=== PATIENT | male | born 1955 | race Caucasian/White ===

== ENCOUNTER 2020-04-12 12:54 | Outpatient (CLI) | payer OTHER, SELFPAY ==
--- NOTE | ~2020-04-12 | XR_ITS ---
XR abdomen/kub 1V DATE: 04/12/2020 13:20 INDICATION: Microscopic hematuria TECHNIQUE: AP projection, 2 views COMPARISON: April 12, 2020 CT abdomen pelvis without and with IV contrast material FINDINGS: Subcutaneous fat concentration in the left posterior flank. Prostate calcifications. Lateral calcified pelvic phleboliths. No urinary tract calcifications are no eitan. The psoas shadows are intact. No visceromegaly is evident. The bowel gas pattern is unremarkable, wit hout evidence of obstruction. Dextroscoliosis and degenerative change of the lumbar spine. Degenerative spurring of the lower thora cic spine. IMPRESSION: Nonspecific abdomen Reviewed, dictated and finalized at [facility]. Reviewed, dictated and finalized at [facility]. [employer] INSPECTOR IMPRESSION: Nonspecific abdomen
--- NOTE | ~2020-04-12 | CT_ITS ---
EXAMINATION: CT abdomen pelvis wo/w con DATE: 04/12/2020 13:57 INDICATION: Microscopic hematuria TECHNIQUE: Computed tomography (CT) of the abdomen and pelvis was performed without and subsequently with 130 cc Omnipaque 350 intravenous contrast. Automated exposure control and iterative reconstructi on technique were employed. Exam dose: 2831.37 mGy-cm total exam DLP. COMPARISON: April 12, 2020 KUB FINDINGS: There is discoid atelectasis or more likely scarring in the medial segment of the middle lo be. The lung bases are clear of infiltrate or consolidation. Normal heart size. No pericardial or pleural effusion. The liver, gallbladder, bile ducts, pancreas, pancreatic duct and spleen are unremarkable. Normal size of the adrenal glands. Multiple scattered bilateral renal cysts, measuring up to 13 mm maximal dimension on the left, 15 mm on the right. No filling defect of the renal collecting systems, ureters or urinary bladder is evident. Noncontrast examination reveals no evidence of urinary tract calculus or hydroureteronephrosis. Prostate enlargement and prominent prostate calcifications. There is moderate thickening of the urina ry bladder wall. Normal appendix. No bowel obstruction, bowel wall thickening, pneumatosis or intraperitoneal free air . There is atherosclerotic calcification of the abdominal aorta and particularly prominent calcificatio n of the superior mesenteric artery. No abdominal aortic aneurysm. No intraperitoneal or retroperiton eal or pelvic mass lesion or adenopathy or ascites. Degenerative changes of the thoracic and lumbar spine including severe degenerative disease and minim al retrolisthesis at L3-4. No suspicious osteolytic or osteoblastic lesions are noted. IMPRESSION: Scattered bilateral renal cysts measuring up to 13 mm on the left, 50 mm on the right No urinary tract calculus or hydroureteronephrosis Prostate enlargement and calcifications Reviewed, dictated and finalized at [facility]. Reviewed, dictated and finalized at [facility]. [employer]
[2020-04-12 13:36] LABS: Estimated Glomerular Filt Rate > 60
== END 2020-04-12 12:55 | disposition home or self-care (01) ==
PROVIDERS: PCP Family Medicine Sports Medicine; Visit Provider Urology
DX: R31.29 Other microscopic hematuria (principal); N28.1 Cyst of kidney, acquired; N40.0 Benign prostatic hyperplasia without lower urinary tract symptoms
CPT/HCPCS: 74018; 74178; Q9967

== ENCOUNTER 2021-11-23 12:16 | Outpatient (CLI) | payer MEDICARE, SELFPAY ==
--- NOTE | ~2021-11-23 | XR_ITS ---
XR abdomen/kub 1V 11/23/2021 12:32 INDICATION: Diarrhea. TECHNIQUE: KUB COMPARISON: KUB and CT dated 04/12/2020 FINDINGS: Bowel gas pattern is normal. Moderate colonic fecal loading. There is an oval calcification overlying the left midabdomen, located in the subcutaneous tissues on prior CT examination. There ar e pelvic phleboliths. Moderate lumbar spondylosis with dextroscoliosis. There is no evidence of free air, mass, organomegaly, ascites or obstruction. No abnormal calculi are seen. The bones appear int act. IMPRESSION: 1: No acute abdominal abnormality identified. Reviewed, dictated and finalized at [facility].
== END 2021-11-23 12:17 | disposition home or self-care (01) ==
LOC: ANHIMG 12:19
PROVIDERS: PCP Family Medicine Sports Medicine; Visit Provider Nurse Practitioner Family
DX: R19.7 Diarrhea, unspecified (principal)
CPT/HCPCS: 74018

== ENCOUNTER 2022-01-01 00:54 | Day surgery (SDC) | payer MEDICARE, SELFPAY ==
[2021-12-25 13:55] VITALS: BMI 29.2
[2022-01-01 09:41] VITALS: BP 128/72; PULSE 71; RESP 18; TEMP 36.2; O2SAT 99
[2022-01-01 09:42] LABS: Glucose Point of Care 121 mg/dl (65-105)
[2022-01-01] MEDS: LACTATED RINGERS 1,000 ML 150 ML IV CONT (09:45)
--- NOTE | 2022-01-01 10:01 | WPDANESEPPF ---
Anes - Initial Pre Proc Eval Procedure: Operation Date: 01/01/22 11:00 Proposed Procedures p Esophagogastroduodenoscopy & Colonoscopy - Bakari Quesada MD Date/Time: 01/01/22 10:01 Surgeon: Bakari Quesada MD Pre Op Diagnosis: MINOO, 50 lb weight loss Patient Data Age: 66 Gender: M Height: 1.8 m Weight: 96.5 kg Last Vital Signs Temp 97.2 F L 01/01/22 09:41 Pulse 71 01/01/22 09:41 Resp 18 01/01/22 09:41 BP 128/72 01/01/22 09:41 Pulse Ox 99 01/01/22 09:41 O2 Del Method Room Air 01/01/22 09:41 Allergies Allergy/AdvReac Type Severity Reaction Status Date / Time No Known Allergies Allergy Unverified 01/01/22 09:40 Home Medications Medication Instructions Recorded Confirmed Type allopurinol 300 mg tablet 300 mg PO DAILY 11/23/21 01/01/22 History alprazolam 1 mg tablet (Xanax) 1 mg PO HS 11/23/21 01/01/22 History carvedilol 25 mg tablet 25 mg PO Q12H 11/23/21 01/01/22 History citalopram 40 mg tablet 40 mg PO DAILY 11/23/21 01/01/22 History glipizide 10 mg tablet 10 mg PO BID 11/23/21 01/01/22 History metformin 1,000 mg tablet 1,000 mg PO BID 11/23/21 01/01/22 History atorvastatin 40 mg tablet 40 mg PO DAILY 12/25/21 01/01/22 History ferrous sulfate 140 mg (45 mg 45 mg PO DAILY 12/25/21 01/01/22 History iron) tablet,extended release (Slow Release Iron) lisinopril 20 1 tablet PO DAILY 12/25/21 01/01/22 History mg-hydrochlorothiazide 12.5 mg tablet Laboratory Tests 01/01/22 09:38 POC Capillary Glucose 121 mg/dl H mg/dl (65-105) Patient hx anesthesia problems: none Family hx anesthesia problems: none Results Review: All pre-operative results and documents have been reviewed as part of the pre-operative evaluation. [facility] Past Medical History Medical History (Updated 11/23/21 @ 13:13 by CARSON Dunlap) Diarrhea Iron deficiency anemia Social History Social History Smoking packs per day: 0.5 Smoking cigarettes per day: 10.0 Years smoked: 10 Smoking pack-years: 5.00 Smoking status: Current every day smoker Tobacco type: cigarettes Alcohol intake: current Drinks per week: 24 Alcohol use details: BEERS- NONE FOR A COUPLE MONTHS Substance use: current Substance use type: marijuana Other substance usage details: MEDICAL CARD-DAILY USE Living arrangements: with family Spiritual care concerns: No Anes - Eval Final PreProcedure Day of Procedure 01/01/22 10:01 Patient weight: obese Heart: regular rate and rhythm Lungs: clear to auscultation Airway: Mallampati scale class II Neurological: alert and oriented Last oral intake: >/= 8 hours ASA classification: III Emergent: no Anesthetic plan: proceed Anesthesia type and monitoring: general GIVS and standard monitoring Results Review: All pre-operative results and documents have been reviewed as part of the pre-operative evaluation. Informed Consent: The patient's anesthetic plan and its attendant risks and benefits were discussed with the patient/family/POA. Questions were solicited and answers provided to the satisfaction of the patient/family/POA.
--- NOTE | 2022-01-01 10:12 | PM.HPGS ---
History of Present Illness History of Present Illness Consent: Risks, benefits, and alternatives have been discussed and questions answered. Patient agrees to proceed with procedure. Chief complaint: MINOO, 50 lb weight loss Narrative: Kody Watson is a 66 year old male with minoo and weight loss, ct scan showed thickening of stomach. Last colonoscopy 2011 Review of Systems Constitutional: Constitutional: Denies headache(s) and Denies weakness Eyes: Eyes: Denies blurry vision ENT: Reports Normal hearing present, Denies headache(s) and Denies neck pain Cardiovascular: Cardiovascular: Denies chest pain and Denies dyspnea Respiratory: Respiratory: Denies dyspnea Gastrointestinal: Gastrointestinal: Reports no additional gastrointestinal complaints Genitourinary: Genitourinary: Denies dysuria Musculoskeletal: Musculoskeletal: Denies neck pain Integumentary/Breasts: Skin/Breast: Denies dry skin Neurologic: Reports Normal hearing present, Denies headache(s) and Denies weakness Psychiatric: Psychiatric: Denies anxiety Endocrine: Endocrine: Denies change in body appearance Hematologic/Lymphatic: Hematologic/Lymphatic: Denies easy bleeding Allergic/Immunologic: Allergic/Immunologic: Denies urticaria PMFSH Past Medical History Medical History (Updated 01/01/22 @ 10:12 by Bakari Quesada MD) Diarrhea Iron deficiency anemia Weight loss Social History Social History Smoking packs per day: 0.5 Smoking cigarettes per day: 10.0 Years smoked: 10 Smoking pack-years: 5.00 Smoking status: Current every day smoker Tobacco type: cigarettes Alcohol intake: current Drinks per week: 24 Alcohol use details: BEERS- NONE FOR A COUPLE MONTHS Substance use: current Substance use type: marijuana Other substance usage details: MEDICAL CARD-DAILY USE Living arrangements: with family Spiritual care concerns: No Meds Home Medications and Allergies Home Medications Medication Instructions Recorded Confirmed Type allopurinol 300 mg tablet 300 mg PO DAILY 11/23/21 01/01/22 History alprazolam 1 mg tablet (Xanax) 1 mg PO HS 11/23/21 01/01/22 History carvedilol 25 mg tablet 25 mg PO Q12H 11/23/21 01/01/22 History citalopram 40 mg tablet 40 mg PO DAILY 11/23/21 01/01/22 History glipizide 10 mg tablet 10 mg PO BID 11/23/21 01/01/22 History metformin 1,000 mg tablet 1,000 mg PO BID 11/23/21 01/01/22 History atorvastatin 40 mg tablet 40 mg PO DAILY 12/25/21 01/01/22 History ferrous sulfate 140 mg (45 mg 45 mg PO DAILY 12/25/21 01/01/22 History iron) tablet,extended release (Slow Release Iron) lisinopril 20 1 tablet PO DAILY 12/25/21 01/01/22 History mg-hydrochlorothiazide 12.5 mg tablet Allergies Allergy/AdvReac Type Severity Reaction Status Date / Time No Known Allergies Allergy Unverified 01/01/22 09:40 Vital Signs Vital Signs - 24 hr 01/01/22 09:41 Temperature 97.2 F L Pulse Rate 71 Respiratory Rate 18 Blood Pressure 128/72 Pulse Oximetry 99 Oxygen Delivery Room Air Exam Const: General: comfortable and no acute distress HENMT: Face/Nose/Sinus: Normal nares present Eyes: General: appearance normal, both eyes and all related structures Neck: Neck: no JVD Resp: Auscultation: clear to auscultation bilaterally Cardio: Rate: regular rate Rhythm: regular rhythm GI: Inspection: non-distended GI Palp: Yes Soft to palpation Skin: General skin exam: normal color Neuro: General: gait normal Speech: normal speech Extrem: General: normal to inspection Psych: Mental Status: mental status grossly normal Assessment and Plan Assessment and plan (1) Iron deficiency anemia: Code(s): D50.9 - Iron deficiency anemia, unspecified Status: Acute Assessment and Plan: egd and colonoscopy, will consider random bx (2) Weight loss: Code(s): R63.4 - Abnormal weight loss Status: Acute
[2022-01-01 10:46] VITALS: BP 132/74; PULSE 64; RESP 27; O2SAT 100
--- NOTE | 2022-01-01 10:47 | SUR.OPER ---
EGD START 1017, END 1021 COLONOSCOPY START 1026, END 1043
[2022-01-01 10:56] VITALS: BP 129/72; PULSE 70; RESP 21; O2SAT 100
[2022-01-01 11:06] VITALS: BP 120/77; PULSE 68; RESP 19; O2SAT 100
== END 2022-01-01 11:08 | disposition home or self-care (01) ==
PROVIDERS: PCP Family Medicine Sports Medicine; Visit Provider Internal Medicine Gastroenterology
PROC: 0DJ08ZZ Inspection of Upper Intestinal Tract, Via Natural or Artificial Opening Endoscopic (ICD-10-PCS; CPT 43235; principal; 2022-01-01 11:00)
DX: D50.9 Iron deficiency anemia, unspecified (principal); R63.4 Abnormal weight loss; Z68.29 Body mass index [BMI] 29.0-29.9, adult; D12.3 Benign neoplasm of transverse colon; D12.5 Benign neoplasm of sigmoid colon; K29.70 Gastritis, unspecified, without bleeding; K64.8 Other hemorrhoids; Z80.0 Family history of malignant neoplasm of digestive organs; R19.7 Diarrhea, unspecified; F17.210 Nicotine dependence, cigarettes, uncomplicated
CPT/HCPCS: 43239; 45385; 45380; 82948; 88305; J2704; J7120